=== PATIENT | female | born 1940 | race Caucasian/White ===

== ENCOUNTER → 2016-07-06 | Outpatient (REF) | payer MEDICARE, OTHER ==
[~2016-07-06] MED LIST: AMLO10TA2 PO; METF-414 PO; SIMV20TA2 PO; TEKT300T PO; VITA200016 PO
== END ==
LOC: M LAB REF 16:28
PROVIDERS: ATTEND Nurse Practitioner Adult Health
DX: D64.9 Anemia, unspecified (principal)

== ENCOUNTER → 2016-08-13 | Outpatient (REF) | payer MEDICARE, OTHER | LOC: M LAB REF 12:24 | PROVIDERS: ATTEND Nurse Practitioner Adult Health | DX: N39.0 Urinary tract infection, site not specified (principal) ==

== ENCOUNTER → 2017-01-12 | Outpatient (REF) | payer MEDICARE, OTHER ==
[~2017-01-12] MED LIST changes: +ASPI81TA85 PO; +BISO10TA PO; +COUM2.5T17 PO; +FERR325T3 PO; +JANU50TA8 PO; +PERC5TAB12 PO; -TEKT300T PO; +[UNRECOGNIZED DRUG - CODE] PO
[2017-01-12 13:30] LABS: INR 0.89
== END ==
LOC: M LAB REF 12:37
PROVIDERS: ATTEND Nurse Practitioner Adult Health
DX: Z01.812 Encounter for preprocedural laboratory examination (principal); Z79.899 Other long term (current) drug therapy

== ENCOUNTER → 2017-01-12 | Outpatient (CLI) | payer MEDICARE, OTHER ==
--- NOTE | 2017-01-12 11:32 | REP ---
Clinical: Preoperative assessment . Comparison: 07/24/2014 . Technique: PA and lateral. Findings: The mediastinum and cardiac silhouette are normal. Airway is patent and midline. The lung pruitt are clear and without acute consolidation, effusion, or pneumothorax. A small subtle nodule in the left suprahilar region cannot be excluded. The skeletal structures are intact and normal. Impression: 1. No acute cardiopulmonary process. 2. Cannot exclude small subtle left suprahilar nodule for which chest CT may be warranted. Signed by Boaz Langford MD 01/12/2017 11:24 A
== END ==
LOC: M ADMPAT 09:52
PROVIDERS: ATTEND Orthopaedic Surgery
DX: Z01.818 Encounter for other preprocedural examination (principal); Z01.812 Encounter for preprocedural laboratory examination; Z79.899 Other long term (current) drug therapy

== ENCOUNTER → 2017-01-13 | Outpatient (REF) | payer MEDICARE, OTHER | LOC: M LAB REF 16:02 | PROVIDERS: ATTEND Orthopaedic Surgery | DX: Z01.818 Encounter for other preprocedural examination (principal); Z79.899 Other long term (current) drug therapy ==

== ENCOUNTER 2017-01-24 06:34 | Inpatient (IN) | payer MEDICARE, OTHER ==
[2017-01-12 10:19] VITALS: BP 139/78
--- NOTE | 2017-01-18 16:49 | HPE ---
DATE OF ADMISSION: 01/24/2017 CHIEF COMPLAINT: Left knee pain and stiffness. HISTORY: Patient is a pleasant 76-year-old female with progressively worsening left knee pain and stiffness. She has failed to improve with conservative measures, so she has elected for a left total knee arthroplasty with Dr. Champagne. Medical optimization received and reviewed during appointment. This was done by nurse practitioner, Nena Johnson. CHRONIC MEDICAL CONDITIONS: 1. Hypertension. 2. Hyperlipidemia. 3. Type 2 diabetes. 4. Lichen planus. SURGICAL HISTORY: 1. Bilateral cataract removal. 2. section. 3. Multiple trigger finger releases. 4. Tonsillectomy. CURRENT MEDICATIONS: - Zebeta 5 mg daily - iron 325 mg daily - Janumet extended release mcg - magnesium 400 mg - aspirin 81 mg daily - amlodipine 10 mg daily - vitamin D3 at 2000 units daily - Zocor 20 mg daily - Tylenol 325 mg as needed for pain - triamcinolone topical - Tekturna 300 mg daily - probiotic ALLERGIES: There are no known drug allergies. SOCIAL HISTORY: Patient is and lives alone. She has never smoked and does not use alcohol. REVIEW OF SYSTEMS: Patient denies fevers, chills, nausea, vomiting, or diarrhea. She denies chest pain, shortness of breath, lightheadedness, dizziness, or headaches. No complaints of abdominal pain. She does have persistent left knee pain with activities of daily living and weightbearing activities. PHYSICAL EXAMINATION: Well-nourished, well-developed female in no apparent distress. She is walking today with a slight limp favoring the left lower extremity. HEAD: Normocephalic. NECK: Supple without lymphadenopathy or jugular venous distention. LUNGS: Clear to auscultation bilaterally. HEART: Regular rate and rhythm. ABDOMEN: Soft. Nontender to palpation. Positive bowel sounds times four. MUSCULOSKELETAL: Inspection of the left knee revealed no gross abnormalities. Her skin is intact. She can extend to almost 0 degrees and can flex to approximately 90 degrees. Left lower extremity strength in normal. No hip irritability was elicited with range of motion. Her calf is soft and nontender to palpation with no palpable cords noted. Her pedal pulses are palpable. VITAL SIGNS: Height 5 feet 3/4 inches, weight 200.6 pounds, temperature 97.7, blood pressure 150/72, heart rate 64, respirations 11. LABORATORY DATA: Chest x-ray: No acute cardiopulmonary process. Cannot exclude small subtle suprahilar nodule, for which chest CT may be warranted. EKG: Study from 2016 does show a normal sinus rhythm. Complete blood count: WBC 6.7, RBC 5.22, hematocrit 39.6, hemoglobin 13.3, platelets 252. Comprehensive chemistry profile: Albumin/globulin ratio 1.1, albumin 3.8, alkaline phosphatase elevated at 129, ALT 26, AST 17. BUN elevated at 21, calcium 9.6, carbon dioxide 26, chloride 104, creatinine 0.9, potassium 4.1, serum glucose elevated at 193, sodium 141. Total bilirubin 0.5, total protein 7.4. Magnesium decreased at 1.6. PTT decreased at 26.7, PT decreased at 12.1, INR 0.89. Fasting glucose 154, hemoglobin A1c 7.0. IMPRESSION: Left knee osteoarthritis with x-rays notable for end-stage degenerative changes. PLAN: Patient has consented for an elective total knee arthroplasty with Dr. Champagne. Medical optimization received from Nena Johnson. EDGARDO
[~2017-01-24] VITALS: Ht 167.6 cm; Wt 89.8 kg
[2017-01-24] VITALS (7 sets, daily range): BP systolic 150–163; BP diastolic 68–80
[~2017-01-24 06:34] MED LIST changes: -COUM2.5T17 PO; +EPINEPHrine INJ 1 MG/ML 1ML AMP As Ordered ONE; -PERC5TAB12 PO; +TRANEXAMIC ACID 100 MG/ML 10ML VIAL As Ordered ONE; +ceFAZolin 1GM INJ (J0690) As Ordered ONE
[2017-01-24] MEDS ORDERED: LR 1,000 ML IV SCH ×2 (06:45→12:15)
[2017-01-24] MEDS ORDERED: ACETAMINOPHEN 500 MG TAB PO ONE (06:45)
[2017-01-24] MEDS ORDERED: fentaNYL 100 MCG/2 ML INJECTION (J3010) As Ordered ONE ×2 (08:33→09:42)
[2017-01-24] MEDS ORDERED: MIDAZOLAM INJ 2 MG/2 ML VIAL (J2250) As Ordered ONE ×2 (08:33→09:42)
[2017-01-24] MEDS: MIDAZOLAM INJ 2 MG/2 ML VIAL (J2250) IV PRN ×2 (08:48→08:49)
[2017-01-24] MEDS ORDERED: BUPIVACAINE LIPOSOME/PF 1.3% 20 ML VIAL (13.3MG/ML)(EXPAREL) As Ordered ONE (09:25)
[2017-01-24] MEDS ORDERED: fentaNYL 100 MCG/2 ML INJECTION (J3010) IV PRN ×2 (09:30→12:15)
[2017-01-24] MEDS ORDERED: LIDOCAINE 2% INJ 100 MG/5 ML SDV (FOR ANES.) As Ordered ONE (09:42)
[2017-01-24] MEDS ORDERED: PROPOFOL 200 MG/20 ML VIAL As Ordered ONE (09:42)
[2017-01-24] MEDS ORDERED: dexameTHASONE 10 MG/1 ML VIAL PRES.FREE (J1100) ONE (10:29)
[2017-01-24] MEDS ORDERED: LIDOCAINE 1% MDV 20ML VIAL ONE (10:29)
[2017-01-24] MEDS ORDERED: ROPIvacaine 0.5% 30 ML INJECTION (J2795) ONE (10:29)
[2017-01-24] MEDS ORDERED: MORPHINE 1MG/ML IN 0.9% NACL 100ML IV BAG As Ordered ONE (11:42)
[2017-01-24] MEDS ORDERED: HumaLOG INSULIN (NovoLOG) PER UNIT As Ordered ONE (11:42)
[2017-01-24] MEDS ORDERED: diphenhydrAMINE INJ 50MG/ML VIAL (J1200) IV PRN (12:15)
[2017-01-24] MEDS ORDERED: PERCOCET 5MG/325MG TAB PO PRN (12:15)
[2017-01-24] MEDS ORDERED: ACETAMINOPHEN TAB 650MG DOSE (2X325MG) PO PRN (12:15)
[2017-01-24] MEDS ORDERED: HumaLOG INSULIN (NovoLOG) PER UNIT SC ONE (12:15)
[2017-01-24] MEDS ORDERED: HYDROmorphone HCL 1 MG/ML SYRINGE (J1170) IV PRN (12:15)
[2017-01-24] MEDS ORDERED: FLEET ENEMA PR PRN (12:15)
[2017-01-24] MEDS ORDERED: ONDANSETRON 4MG/2ML VIAL (J2405) IV PRN ×2 (12:15)
[2017-01-24] MEDS ORDERED: EPIDURAL/PCA KEYS XX PRN (12:15)
[2017-01-24] MEDS ORDERED: NALBUPHINE HCL 10 MG/ML AMP (J2300) IV PRN (12:15)
[2017-01-24] MEDS ORDERED: MORPHINE 1MG/ML IN 0.9% NACL 100ML IV BAG IV PRN (12:15)
[2017-01-24] MEDS ORDERED: NALOXONE INJ 0.4 MG/1 ML VIAL (J2310) IV PRN (12:15)
[2017-01-24] MEDS ORDERED: GLUCAGON FOR INJ 1 MG VIAL (J1610) SC PRN (14:15)
[2017-01-24] MEDS ORDERED: GLUCOSE 4 GM CHEW TABLET PO PRN (14:15)
[2017-01-24] MEDS ORDERED: DEXTROSE 50% 50 ML SYRINGE IV PRN (14:15)
--- NOTE | 2017-01-24 14:22 | CR ---
DATE OF CONSULTATION: 01/24/2017 PRIMARY CARE PROVIDER: Janel Menendez/Dr. Teddy Fernandez SURGEON: Dr. Emir Champagne HOSPITALIST ATTENDING: Will be Dr. Taty Cervantes effective 01/25/2017 Scooter Barrera is seen postoperatively. She underwent left total knee today. Her preoperative optimization was performed by Nena Johnson NP at Dr. Fernandez's office. She has a history of hypertension, type 2 diabetes, hyperlipidemia, lichen planus. She had a nuclear stress test on 04/21 that showed no ischemia. Ejection fraction of 51%. HOME MEDICATIONS: - bisoprolol 5 mg daily - Janumet XR (Januvia) 50 mg/metformin XR 1000 mg (I assume daily) frequency is not specified on her preop - amlodipine 10 mg presumably daily - simvastatin 20 mg daily - triamcinolone 0.1% for the lichen planus - Tekturna 300 mg presumably daily Preoperative optimization did not specify the frequency of any of her medications. PHYSICAL EXAMINATION: 153/72, pulse 65, respiratory rate 18, 98% oxygen saturation, 97.7 degrees. GENERAL APPEARANCE: She is resting comfortably and visiting with family members, eating her lunch. HEENT: Unremarkable. LUNGS: Clear. HEART: Regular rate and rhythm. ABDOMEN: Soft, nontender. No masses. EXTREMITIES: No peripheral edema. LABORATORY DATA: Still pending. She had preoperative laboratories done at Dr. Fernandez's office. Hemoglobin was 13.3, platelets 250, white count 6.7, BUN 21, magnesium 1.6. EKG showed nonspecific abnormalities. No change from 12/22. Chest x-ray suggested question of small nodule in left suprahilar area. IMPRESSION: 1. Hypertension. Continue bisoprolol. Hold the amlodipine and Tekturna for now. Reintroduce amlodipine if blood pressure becomes elevated and then subsequently Tekturna if necessary. 2. Type 2 diabetes. Sliding scale insulin and fingerstick blood sugar coverage for the first 24 hours until her oral intake is assured. At that point, consideration could be given to restarting her oral agents, assuming her renal function is maintained. 3. Hyperlipidemia. Continue her simvastatin 20 mg daily. 4. Lung nodule on chest x-ray. This needs to be evaluated as an outpatient. Per preoperative optimization note, they plan to address this through Dr. Fernandez's office. Dr. Taty Cervantes will be assuming the patient's medical care in the morning.
--- NOTE | 2017-01-24 16:35 | RO ---
DATE OF PROCEDURE: 01/24/2017 PREPROCEDURE DIAGNOSIS: Left knee degenerative arthritis. POSTPROCEDURE DIAGNOSIS: Left knee degenerative arthritis. PROCEDURE: Left total knee arthroplasty using a size 3 cruciate-retaining femoral component, a size 3 tibial tray with a 10 mm rotating platform polyethylene insert and a 32 mm polyethylene button. All component were cemented. The prosthesis was made by [employer]; it was a PFC knee. SURGEON: Dr. Clifford Champagne RADIO INTERFERENCE EXPERT: Mr. Logan Vegas ANESTHESIA: Spinal with left femoral nerve block. COMPLICATIONS: None. ESTIMATED BLOOD LOSS: Less than 20 mL. SPECIMENS: Joint surface. DESCRIPTION OF PROCEDURE: Antibiotics were given intravenously preoperatively successfully, then a left femoral nerve block and then a spinal anesthetic was induced successfully. Tourniquet was placed on the left upper thigh and not inflated. A Clifton catheter was placed. Left lower extremity was then carefully prepped and draped in the usual sterile fashion. Then, after appropriate time-out, the leg was elevated, tourniquet was inflated. A longitudinal incision was made for a medial parapatellar approach to the knee. Bovie cautery was used to coagulate crossing vessels. Medial parapatellar arthrotomy was then performed. Subperiosteal dissection was performed along the proximal and medial portion of the tibia and then as well along the edge of the lateral tibial plateau. The patella was then everted and the knee was flexed. Anterior cruciate ligament (ACL) was debrided. Drill was placed down the center of the femoral canal, followed by the intramedullary guero, the distal femoral cutting jig set at 5 degree valgus cut, at 10 mm resection level for a left knee. It was pinned into position and then the distal femoral cut performed. AP sizing jig measured for a size 3 femoral component, thus this position was pinned into position followed by the 3 degree external rotation block, which was pinned into position, followed by the 4-in-1 block and then that was applied to the distal femur. AP and then the chamfer cuts were then performed, taking great care to protect the surrounding soft tissues. We then exposed the proximal tibia and used the extramedullary alignment jig to be sure parallel to the mechanical axis, referenced off the medial tibial condyle at 4 mm resection level. The block was pinned in that position, secondary check with the extramedullary guero confirmed that we appeared to be parallel to the mechanical axis. Proximal tibial osteotomy was then performed. We placed the lamina lieutenant firefighter laterally and performed a completion medial meniscectomy, debridement of the posteromedial osteophytes. We then placed the lamina lieutenant firefighter medially and performed a completion lateral meniscectomy, debridement of the posterolateral osteophytes. The sizing block placed, 10 mm fit nicely with good extension and good stability to varus, valgus and AP stress testing. This was felt to be the appropriate size. We then exposed the proximal tibia, sized for a #3 tibial tray, which was pinned into position, followed by the reamer and broach. We then placed the trial polyethylene, then placed the trial femoral component. It fit nicely, and there was good stability to varus, valgus stress testing both in flexion and in extension. We everted the patella, brought the knee into extension and performed a patellar osteotomy, sized for a 32 mm button. The lug holes were drilled, and the trial polyethylene patellar component was placed and the patellofemoral tracking was anatomic. We then removed all the trial components and then began placing Exparel in the soft tissues in the posterior aspect of the knee and around the periosteum of the femur and in the edges of the arthrotomy. As this was being done, my optical assistant, Mr. Logan Vegas, mixed the cement on the back table as I then prepared the bony surfaces for cementing with a copious amount of pulsatile lavage irrigant solution. Once everything had been thoroughly dried, I cemented the tibial tray, removed excess cement, placed the polyethylene, then cemented the femoral component, removed all the excess cement, then brought the knee into extension and then cemented the patellar component and removed excess cement, held the patellar clamp until the cement had hardened with the knee in extension. And as the cement was hardening, copiously pulsatile lavage irrigated out the knee joint as we did several times throughout the operation. Once the cement had hardened, I began closing the apex of the arthrotomy with two #1 PDS sutures and the medial parapatellar area was closed with a single #1 PDS suture, followed by a running double-armed Stratafix after we placed tranexamic acid into the knee. We then let the tourniquet down, irrigated between layers, closed the deep subdermal tissues with interrupted #2-0 PDS sutures, skin was closed with karlie, covered by Adaptic dry sterile bulky dressing. The patient was then transferred to the recovery room in stable condition. There were no intraoperative complications. Mr. Logan Vegas was critical to the success of this operation by helping to manipulate the knee, helping to manipulate the leg and provide appropriate soft tissue retraction, so I could perform the operation smoothly and efficiently, helped to close the wound, amongst others. EDGARDO
[2017-01-24] MEDS ORDERED: WARFARIN SOD 5 MG TAB PO ONE (17:00)
[2017-01-24] MEDS: LR 1,000 ML IV SCH ×2 (17:18→22:41)
[2017-01-24] MEDS: HumaLOG INSULIN (NovoLOG) PER UNIT SC SCH ×2 (17:18→21:00)
[2017-01-24] MEDS: SIMVASTATIN 20 MG TAB PO SCH (17:20)
[2017-01-24] MEDS: BISOPROLOL FUMARATE 10 MG TAB PO SCH (17:21)
[2017-01-25 02:00] VITALS: BP 128/60
[2017-01-25 06:00] VITALS: BP 130/56
[2017-01-25] MEDS ORDERED: PERCOCET 5MG/325MG TAB PO PRN (07:00)
[2017-01-25 07:08] LABS: MEAN CORPUSCULAR HEMOGLOBIN 26.5 pg (27.0-33.0); MEAN CORPUSCULAR HGB CONC 33.2 g/dl (32.0-36.5); RED CELL DISTRIBUTION WIDTH 14.3 % (11.5-14.5); WHITE BLOOD COUNT 10.8 K/mm3 (4.0-10.0)
[2017-01-25 07:14] LABS: INR 1.21
[2017-01-25 07:30] LABS: CALCIUM LEVEL 8.9 MG/DL (8.8-10.2); GLOMERULAR FILTRATION RATE 57.1 (>39); POTASSIUM SERUM 4.5 MEQ/L (3.5-5.1)
[2017-01-25] MEDS: MOM 30ML SUSPENSION UDC PO SCH (08:38)
[2017-01-25] MEDS: MIRALAX *UNIT DOSE* 17GM PACKET PO SCH (08:38)
[2017-01-25] MEDS: HumaLOG INSULIN (NovoLOG) PER UNIT SC SCH ×4 (08:39→21:00)
[2017-01-25] MEDS: BISOPROLOL FUMARATE 10 MG TAB PO SCH (08:39)
[2017-01-25] MEDS: SIMVASTATIN 20 MG TAB PO SCH (08:40)
[2017-01-25] MEDS: SENOKOT S TAB PO SCH ×2 (08:40→20:57)
[2017-01-25] MEDS: PERCOCET 5MG/325MG TAB PO PRN ×3 (08:40→20:57)
[2017-01-25 10:00] VITALS: BP 155/64
[2017-01-25] MEDS ORDERED: ONDANSETRON 4MG/2ML VIAL (J2405) IV PRN (10:45)
[2017-01-25] MEDS: ONDANSETRON 4 MG TAB (S0181) PO PRN ×2 (10:49→17:07)
--- NOTE | 2017-01-25 11:01 | REP ---
LEFT KNEE: Two views of the left knee are performed. Total knee prosthesis appears in good position. Structures are well aligned. Multiple metallic skin karlie are seen anteriorly. Signed by Jarad Hilliard MD 01/25/2017 01:47 P
[2017-01-25 14:00] VITALS: BP 134/71
[2017-01-25] MEDS ORDERED: WARFARIN SOD 5 MG TAB PO ONE (17:00)
[2017-01-25 22:00] VITALS: BP 177/75
[2017-01-26] MEDS: PERCOCET 5MG/325MG TAB PO PRN ×4 (01:00→14:45)
[2017-01-26 06:00] VITALS: BP 162/71
[2017-01-26 07:09] LABS: MEAN CORPUSCULAR HEMOGLOBIN 26.8 pg (27.0-33.0); MEAN CORPUSCULAR HGB CONC 33.7 g/dl (32.0-36.5); MEAN CORPUSCULAR VOLUME 79.4 fl (80.0-96.0); RED CELL DISTRIBUTION WIDTH 14.2 % (11.5-14.5); WHITE BLOOD COUNT 6.2 K/mm3 (4.0-10.0)
[2017-01-26 07:10] LABS: INR 1.54
[2017-01-26 07:13] LABS: ANION GAP 5 MEQ/L (8-16); BLOOD UREA NITROGEN 21 MG/DL (7-18); CALCIUM LEVEL 8.7 MG/DL (8.8-10.2); CARBON DIOXIDE LEVEL 29 MEQ/L (21-32); CHLORIDE LEVEL 108 MEQ/L (98-107); CREATININE FOR GFR 0.81 MG/DL (0.55-1.02); GLOMERULAR FILTRATION RATE > 60.0 (>39); GLUCOSE, FASTING 186 MG/DL (83-110); POTASSIUM SERUM 4.4 MEQ/L (3.5-5.1); SODIUM LEVEL 142 MEQ/L (136-145)
[2017-01-26 08:20] VITALS: BP 162/71
[2017-01-26] MEDS: MOM 30ML SUSPENSION UDC PO SCH (08:20)
[2017-01-26] MEDS: SIMVASTATIN 20 MG TAB PO SCH (08:20)
[2017-01-26] MEDS: HumaLOG INSULIN (NovoLOG) PER UNIT SC SCH ×2 (08:20→12:00)
[2017-01-26] MEDS: SENOKOT S TAB PO SCH (08:20)
[2017-01-26] MEDS: MIRALAX *UNIT DOSE* 17GM PACKET PO SCH (08:20)
[2017-01-26] MEDS ORDERED: BISOPROLOL FUMARATE 5 MG TAB PO SCH (09:00)
[2017-01-26] MEDS ORDERED: COUM2.5T17 PO (09:01)
[2017-01-26] MEDS ORDERED: PERC5TAB12 PO (09:02)
[2017-01-26 14:00] VITALS: BP 142/55
--- NOTE | 2017-02-03 10:41 | DSES ---
DATE OF ADMISSION: 01/24/2017 DATE OF DISCHARGE: 01/26/2017 ATTENDING PHYSICIAN: Dr. Champagne ADMITTING DIAGNOSIS: Osteoarthritis left knee. OTHER DIAGNOSIS: Hypertension. Diabetes type 2. Elevated lipids. DISCHARGE DIAGNOSIS: Osteoarthritis left knee status post left total knee arthroplasty. OPERATION PERFORMED: Left total knee arthroplasty. HISTORY: This is a 76-year-old female patient with progressively worsening left knee pain and stiffness. She failed to improve with conservative management. She was admitted for elective knee replacement on the left side. HOSPITAL COURSE: The patient was admitted on day of surgery, underwent a left total knee arthroplasty, which was uneventful. She did well in the postoperative period and her hospital course was without complications. She was up with physical therapy per their protocol and her pain was controlled. On day of discharge, she was doing well, weightbearing as tolerated on left knee. She will move her left knee to prevent stiffness. She will use adjusted dose Coumadin and thromboembolic deterrent (NASEEM) stockings for 30 days postoperative for deep venous thrombosis (DVT) prophylaxis. She will resume her preoperative medications and diet. She will use oral pain medications for pain control. She was given instructions on wound monitoring activity limitations as well as other instructions. She will followup in our office in 10-14 days. Please refer to the medical record for further details.
== END 2017-01-26 15:35 | disposition home health service (06) | DRG 470 ==
LOC: M OR 06:34 → M MS5PR 12:15
PROVIDERS: ADMIT Orthopaedic Surgery; ATTEND Orthopaedic Surgery
PROC: 0SRD0J9 Replacement of Left Knee Joint with Synthetic Substitute, Cemented, Open Approach (ICD-10-PCS; principal; 2017-01-24 08:15)
DX: M17.12 Unilateral primary osteoarthritis, left knee (principal); I10 Essential (primary) hypertension; E78.5 Hyperlipidemia, unspecified; E11.9 Type 2 diabetes mellitus without complications; R91.8 Other nonspecific abnormal finding of lung field; L43.9 Lichen planus, unspecified; Z98.41 Cataract extraction status, right eye; Z98.42 Cataract extraction status, left eye; Z79.82 Long term (current) use of aspirin; Z79.84 Long term (current) use of oral hypoglycemic drugs; Z79.899 Other long term (current) drug therapy

== ENCOUNTER → 2017-02-10 | Outpatient (REF) | payer MEDICARE, OTHER ==
[~2017-02-10] MED LIST changes: +COUM2.5T17 PO; -EPINEPHrine INJ 1 MG/ML 1ML AMP As Ordered ONE; +PERC5TAB12 PO; -TRANEXAMIC ACID 100 MG/ML 10ML VIAL As Ordered ONE; -ceFAZolin 1GM INJ (J0690) As Ordered ONE
[2017-02-10 12:47] LABS: INR 1.45
== END ==
LOC: M LABDRAW1 11:05
PROVIDERS: ATTEND Nurse Practitioner Family
DX: Z79.01 Long term (current) use of anticoagulants (principal)

== ENCOUNTER → 2017-02-17 | Outpatient (REF) | payer MEDICARE, OTHER ==
[2017-02-17 14:30] LABS: INR 2.22
== END ==
LOC: M SHH 11:52
PROVIDERS: ATTEND Nurse Practitioner Family
DX: Z79.01 Long term (current) use of anticoagulants (principal)

== ENCOUNTER → 2017-02-21 | Outpatient (REF) | payer MEDICARE, OTHER ==
[2017-02-21 13:21] LABS: INR 1.38
== END ==
LOC: M SHH 12:08
PROVIDERS: ATTEND Nurse Practitioner Family
DX: Z79.01 Long term (current) use of anticoagulants (principal)

== ENCOUNTER → 2017-06-27 | Outpatient (REF) | payer MEDICARE, OTHER ==
[2017-06-27 19:57] LABS: IRON (FE) 33 UG/DL (50-170)
== END ==
LOC: M LAB REF 18:19
DX: D50.9 Iron deficiency anemia, unspecified (principal)
CPT/HCPCS: 83540

== ENCOUNTER → 2017-09-27 | Outpatient (REF) | payer MEDICARE, OTHER ==
[2017-09-27 18:31] LABS: IRON (FE) 41 UG/DL (50-170)
== END ==
LOC: M LAB REF 17:13
DX: D50.9 Iron deficiency anemia, unspecified (principal)
CPT/HCPCS: 83540

== ENCOUNTER → 2018-02-02 | Outpatient (REF) | payer MEDICARE, OTHER ==
[2018-02-02 19:25] LABS: IRON (FE) 58 UG/DL (50-170)
== END ==
LOC: M LAB REF 16:27
DX: D50.9 Iron deficiency anemia, unspecified (principal)
CPT/HCPCS: 83540

== ENCOUNTER → 2018-06-14 | Outpatient (REF) | payer MEDICARE, OTHER ==
[~2018-06-14] MED LIST changes: -AMLO10TA2 PO; +AMLO10TA5 PO; +TEKT300T PO; -[UNRECOGNIZED DRUG - CODE] PO
== END ==
LOC: M LAB REF 16:40
PROVIDERS: ATTEND Nurse Practitioner Adult Health
DX: E03.9 Hypothyroidism, unspecified (principal)

== ENCOUNTER → 2018-11-07 | Outpatient (REF) | payer MEDICARE, OTHER ==
[~2018-11-07] MED LIST changes: -BISO10TA PO; +BISO10TA13 PO
== END ==
LOC: M LAB REF 16:32
PROVIDERS: ATTEND Nurse Practitioner Adult Health
DX: D50.9 Iron deficiency anemia, unspecified (principal)

== ENCOUNTER → 2019-12-12 | Outpatient (REF) | payer MEDICARE, OTHER ==
[~2019-12-12] MED LIST changes: -AMLO10TA5 PO; +AMLO1TAB25 PO; -ASPI81TA85 PO; +ASPI81TA86 PO; -SIMV20TA2 PO; +SIMV20TA22 PO
[2020-01-21 09:22] LABS: ANTINUCLEAR ANTIBODIES DIRECT See Separate Report; HEREDITARY HEMOCHROMATOSIS SEE SEPARATE REPORT
[2020-01-27 17:02] LABS: HEPATITIS A ANTIBODY IGM NEGATIVE (NEGATIVE); HEPATITIS B CORE ANTIBODY IGM NEGATIVE (NEGATIVE); HEPATITIS B SURFACE ANTIGEN NEGATIVE (NEGATIVE); HEPATITIS C VIRUS ABY INDEX 0.2 INDEX (<0.8); IRON (FE) 50 UG/DL (50-170); PERCENT SATURATION 18.7 % (13.2-45.0); TOTAL IRON BINDING CAPACITY 267 UG/DL (250-450)
== END ==
LOC: M LAB REF 10:06
PROVIDERS: ATTEND Nurse Practitioner Adult Health
DX: R74.8 Abnormal levels of other serum enzymes (principal); Z51.81 Encounter for therapeutic drug level monitoring; Z79.01 Long term (current) use of anticoagulants

== ENCOUNTER → 2019-12-14 | Outpatient (REF) | payer MEDICARE, OTHER | LOC: M LAB REF 11:11 | PROVIDERS: ATTEND Nurse Practitioner Adult Health | DX: R74.9 Abnormal serum enzyme level, unspecified (principal) ==

== ENCOUNTER → 2019-12-19 | Emergency (ER) | payer MEDICARE, OTHER ==
[~2019-12-19] MED LIST changes: +ISOVUE-370 76% 100ML VIAL As Ordered ONE
[2020-02-06 20:16] LABS: BASO % 0.2 % (0.0-1.0); EOS % 0.2 % (0.0-3.0); HEMATOCRIT 42.4 % (36.0-47.0); HEMOGLOBIN 13.9 g/dl (12.0-15.5); LYMPH # 0.7 10^3/uL (1.5-5.0); LYMPH % 8.9 % (24.0-44.0); MEAN CORPUSCULAR HEMOGLOBIN 27.2 pg (27.0-33.0); MEAN CORPUSCULAR HGB CONC 32.8 g/dl (32.0-36.5); MONO # 0.4 10^3/uL (0.0-0.8); MONO % 5.1 % (0.0-5.0); NEUTROPHILS # 7.1 10^3/uL (1.5-8.5); NEUTROPHILS % 85.2 % (36.0-66.0); PLATELET COUNT, AUTOMATED 212 10^3/uL (150-450); RED BLOOD COUNT 5.11 10^6/uL (4.00-5.40); WHITE BLOOD COUNT 8.3 10^3/uL (4.0-10.0)
[2020-03-12 04:57] LABS: CALCIUM LEVEL 9.4 MG/DL (8.8-10.2); CREATININE FOR GFR 1.03 MG/DL (0.55-1.30); GLOMERULAR FILTRATION RATE 54.7 (>32); POTASSIUM SERUM 4.6 MEQ/L (3.5-5.1)
== END | disposition other institution (70) ==
LOC: M ED 16:25
DX: K83.1 Obstruction of bile duct (principal); E11.9 Type 2 diabetes mellitus without complications; I10 Essential (primary) hypertension; E78.5 Hyperlipidemia, unspecified; Z79.899 Other long term (current) drug therapy; N28.1 Cyst of kidney, acquired; R16.1 Splenomegaly, not elsewhere classified; K76.89 Other specified diseases of liver; I51.7 Cardiomegaly
CPT/HCPCS: 74177; 74181; 76705; 80048; 83605; 83690; 85025; 99291; Q9967; U0002

== ENCOUNTER → 2020-06-29 | Outpatient (CLI) | payer MEDICARE, OTHER ==
[~2020-06-29] MED LIST changes: -ISOVUE-370 76% 100ML VIAL As Ordered ONE
== END ==
LOC: M LABSMTC 09:19
PROVIDERS: ATTEND Nurse Practitioner Adult Health
DX: Z01.812 Encounter for preprocedural laboratory examination (principal); Z20.822 Contact with and (suspected) exposure to COVID-19

== ENCOUNTER → 2020-07-30 | Outpatient (CLI) | payer MEDICARE, OTHER | LOC: M LABSMTC 13:39 | PROVIDERS: ATTEND Registered Nurse | DX: Z01.812 Encounter for preprocedural laboratory examination (principal); K83.1 Obstruction of bile duct ==

== ENCOUNTER → 2021-03-23 | Outpatient (REF) | payer MEDICARE, OTHER | LOC: M LAB REF 16:29 | PROVIDERS: ATTEND Nurse Practitioner Adult Health | DX: N39.0 Urinary tract infection, site not specified (principal); E03.9 Hypothyroidism, unspecified ==

== ENCOUNTER → 2021-04-24 | Outpatient (REF) | payer MEDICARE, OTHER ==
[2021-04-24 16:37] LABS: BACTERIA, URINE AUTO NEGATIVE (NEGATIVE); MUCUS, URINE SMALL (NEGATIVE); RBC, URINE AUTO 2 /HPF (0-3); SQUAMOUS EPITHELIAL CELL UR AU 0 /HPF (0-6); WBC, URINE AUTO 1 /HPF (0-3)
== END ==
LOC: M LAB REF 16:06
PROVIDERS: ATTEND Physician Assistant Medical
DX: R31.9 Hematuria, unspecified (principal)

== ENCOUNTER 2021-09-09 07:50 | Day surgery (SDC) | payer MEDICARE, OTHER ==
[~2021-09-09] VITALS: Ht 165.1 cm; Wt 85.6 kg
[~2021-09-09 07:50] MED LIST changes: +ASPI81TA26 PO; +D 101000 PO; +FURO40TA2 PO; +LIDOCAINE W/EPINEPHRINE 1% 20ML VIAL ID ONE; +MAGN400T2 PO; +METF500T13 PO; +SODIUM BICARBONATE 8.4% INJ 50MEQ 50 ML VIAL ID ONE; +SPIR-10 PO; +VALS1TAB67 PO
[2021-09-09 11:04] VITALS: BP 133/62
== END 2021-09-09 11:30 | disposition home or self-care (01) ==
LOC: M SDC 07:50
PROVIDERS: ATTEND Orthopaedic Surgery Hand Surgery
DX: M65.4 Radial styloid tenosynovitis [de Quervain] (principal); R22.43 Localized swelling, mass and lump, lower limb, bilateral; I10 Essential (primary) hypertension; Z79.82 Long term (current) use of aspirin; Z79.899 Other long term (current) drug therapy

== ENCOUNTER → 2021-09-25 | Outpatient (CLI) | payer MEDICARE, OTHER ==
[~2021-09-25] MED LIST changes: +Areds PO; +BISO5TAB14 PO; -LIDOCAINE W/EPINEPHRINE 1% 20ML VIAL ID ONE; -SODIUM BICARBONATE 8.4% INJ 50MEQ 50 ML VIAL ID ONE
== END ==
LOC: M LABSMTC 09:25
PROVIDERS: ATTEND Anesthesiology
DX: Z01.812 Encounter for preprocedural laboratory examination (principal); Z20.822 Contact with and (suspected) exposure to COVID-19

== ENCOUNTER 2021-09-30 07:33 | Day surgery (SDC) | payer MEDICARE, OTHER ==
[~2021-09-30] VITALS: Ht 165.1 cm; Wt 79.4 kg
[~2021-09-30 07:33] MED LIST changes: +LIDOCAINE W/EPINEPHRINE 1% 20ML VIAL XX ONE; +SODIUM BICARBONATE 8.4% INJ 50MEQ 50 ML VIAL XX ONE
[2021-09-30] MEDS ORDERED: BACITRACIN OINTMENT 30GM TUBE As Ordered ONE (09:41)
[2021-09-30 10:30] VITALS: BP 159/70
== END 2021-09-30 10:50 | disposition home or self-care (01) ==
LOC: M SDC 07:33
PROVIDERS: ATTEND Orthopaedic Surgery Hand Surgery
DX: M65.351 Trigger finger, right little finger (principal); M65.311 Trigger thumb, right thumb; I10 Essential (primary) hypertension; E11.9 Type 2 diabetes mellitus without complications; Z79.84 Long term (current) use of oral hypoglycemic drugs; Z79.899 Other long term (current) drug therapy

== ENCOUNTER → 2021-11-04 | Outpatient (CLI) | payer MEDICARE, OTHER ==
[~2021-11-04] MED LIST changes: -LIDOCAINE W/EPINEPHRINE 1% 20ML VIAL XX ONE; -SODIUM BICARBONATE 8.4% INJ 50MEQ 50 ML VIAL XX ONE
== END ==
LOC: M WUC 11:57
PROVIDERS: ATTEND Nurse Practitioner Adult Health
DX: S20.212A Contusion of left front wall of thorax, initial encounter (principal); X58.XXXA Exposure to other specified factors, initial encounter; Y92.9 Unspecified place or not applicable

== ENCOUNTER → 2022-02-22 | Outpatient (CLI) | payer MEDICARE, OTHER | LOC: M LABSMTC 09:05 | PROVIDERS: ATTEND Anesthesiology | DX: Z01.818 Encounter for other preprocedural examination (principal); Z11.52 Encounter for screening for COVID-19 ==

== ENCOUNTER 2022-02-24 11:27 | Day surgery (SDC) | payer MEDICARE, OTHER ==
[~2022-02-24] VITALS: Ht 167.6 cm; Wt 90.3 kg
[~2022-02-24 11:27] MED LIST changes: +LIDOCAINE W/EPINEPHRINE 1% 20ML VIAL XX ONE; +SODIUM BICARBONATE 8.4% INJ 50MEQ 50 ML VIAL XX ONE
[2022-02-24] MEDS ORDERED: BACITRACIN OINTMENT 30GM TUBE As Ordered ONE (13:07)
[2022-02-24 14:00] VITALS: BP 172/64
== END 2022-02-24 14:30 | disposition home or self-care (01) ==
LOC: M SDC 11:27
PROVIDERS: ATTEND Orthopaedic Surgery Hand Surgery
DX: M65.4 Radial styloid tenosynovitis [de Quervain] (principal); M65.352 Trigger finger, left little finger; I10 Essential (primary) hypertension; E11.9 Type 2 diabetes mellitus without complications; H81.10 Benign paroxysmal vertigo, unspecified ear; Z79.899 Other long term (current) drug therapy; Z79.82 Long term (current) use of aspirin; Z79.84 Long term (current) use of oral hypoglycemic drugs

== ENCOUNTER → 2022-05-26 | Outpatient (REF) | payer MEDICARE, OTHER ==
[~2022-05-26] MED LIST changes: -LIDOCAINE W/EPINEPHRINE 1% 20ML VIAL XX ONE; -SODIUM BICARBONATE 8.4% INJ 50MEQ 50 ML VIAL XX ONE
[2022-05-26 17:41] LABS: PHOSPHORUS LEVEL 2.8 MG/DL (2.4-5.1); PTH INTACT 150.3 PG/ML (18.5-88.0)
== END ==
LOC: M LAB REF 16:29
PROVIDERS: ATTEND Nurse Practitioner Adult Health
DX: E83.52 Hypercalcemia (principal)

== ENCOUNTER → 2022-08-27 | Outpatient (CLI) | payer MEDICARE, OTHER | LOC: M CARPUL 09:08 | PROVIDERS: ATTEND Nurse Practitioner Adult Health | DX: R06.02 Shortness of breath (principal) ==

== ENCOUNTER → 2022-11-17 | Outpatient (REF) | payer MEDICARE, OTHER | LOC: M LAB REF 12:34 | PROVIDERS: ATTEND Nurse Practitioner Adult Health | DX: E87.5 Hyperkalemia (principal) ==

== ENCOUNTER → 2023-03-07 | Outpatient (REF) | payer MEDICARE, OTHER | LOC: M LAB REF 16:36 | PROVIDERS: ATTEND Nurse Practitioner Adult Health | DX: N39.0 Urinary tract infection, site not specified (principal) ==

== ENCOUNTER → 2023-04-12 | Outpatient (REF) | payer MEDICARE, OTHER ==
[2023-04-12 17:01] LABS: APPEARANCE, URINE CLEAR (CLEAR); BACTERIA, URINE AUTO NEGATIVE (NEGATIVE); BILIRUBIN, URINE AUTO NEGATIVE (NEGATIVE); BLOOD, URINE BLOOD NEGATIVE (NEGATIVE); COLOR, URINE YELLOW (YELLOW); GLUCOSE, URINE (UA) AUTO NEGATIVE (NEGATIVE); KETONE, URINE AUTO NEGATIVE (NEGATIVE); LEUKOCYTE ESTERASE, URINE AUTO NEGATIVE (NEGATIVE); NITRITE, URINE AUTO NEGATIVE (NEGATIVE); PROTEIN, URINE AUTO NEGATIVE (NEGATIVE); RBC, URINE AUTO 1 /HPF (0-3); SPECIFIC GRAVITY URINE AUTO 1.011 (1.002-1.035); SQUAMOUS EPITHELIAL CELL UR AU 2 /HPF (0-6); UROBILINOGEN, URINE AUTO 0.2 mg/dL (0.0-2.0); WBC, URINE AUTO 2 /HPF (0-3)
== END ==
LOC: M LAB REF 16:29
PROVIDERS: ATTEND Nurse Practitioner Adult Health
DX: I12.9 Hypertensive chronic kidney disease with stage 1 through stage 4 chronic kidney disease, or unspecified chronic kidney disease (principal)

== ENCOUNTER → 2024-03-07 | Outpatient (REF) | payer MEDICARE, OTHER | LOC: M LAB REF 16:55 | PROVIDERS: ATTEND Nurse Practitioner Adult Health | DX: E03.9 Hypothyroidism, unspecified (principal) ==

== ENCOUNTER 2024-07-28 18:49 | Inpatient (IN) | payer MEDICARE, OTHER ==
[~2024-07-28] VITALS: Ht 165.1 cm; Wt 72.8 kg
[2024-07-28 20:23] LABS: BASO % 0.3 % (0.0-1.0); EOS # 0.1 10^3/uL (0.0-0.5); EOS % 0.7 % (0.0-3.0); HEMATOCRIT 39.5 % (36.0-47.0); HEMOGLOBIN 12.9 g/dl (12.0-15.5); LYMPH # 0.8 10^3/uL (1.5-5.0); MEAN CORPUSCULAR HEMOGLOBIN 29.4 pg (27.0-33.0); MEAN CORPUSCULAR HGB CONC 32.7 g/dl (32.0-36.5); MONO # 0.4 10^3/uL (0.0-0.8); MONO % 5.4 % (2.0-8.0); NEUTROPHILS # 6.3 10^3/uL (1.5-8.5); NEUTROPHILS % 82.5 % (36.0-66.0); PLATELET COUNT, AUTOMATED 149 10^3/uL (150-450); RED BLOOD COUNT 4.39 10^6/uL (4.00-5.40); WHITE BLOOD COUNT 7.6 10^3/uL (4.0-10.0)
[2024-07-28 20:58] LABS: CALCIUM LEVEL 9.9 MG/DL (8.3-10.6); CREATININE FOR GFR 1.26 MG/DL (0.55-1.30); MAGNESIUM LEVEL 2.1 MG/DL (1.8-2.4); POTASSIUM SERUM 4.5 MMOL/L (3.5-5.1)
[2024-07-28] MEDS ORDERED: GLUCAGON INJ 1MG VIAL SC PRN (23:15)
[2024-07-28] MEDS ORDERED: GLUCOSE 4 GM CHEW PO PRN (23:15)
[2024-07-28] MEDS ORDERED: DEXTROSE 50% 50ML SYRINGE IV PRN (23:15)
[2024-07-29 00:32] VITALS: BP 168/82; TEMP 97.3; O2SAT 95
[2024-07-29] MEDS: KETOROLAC 30 MG/ML 1ML VIAL IV PRN (00:44)
[2024-07-29] MEDS ORDERED: ELIQ5TAB PO (02:15)
[2024-07-29] MEDS ORDERED: OCUVTAB4 PO (02:15)
[2024-07-29] MEDS ORDERED: VALS40TA9 PO (02:15)
[2024-07-29] MEDS ORDERED: DRON400T PO (02:15)
[2024-07-29] MEDS ORDERED: FURO20TA2 PO (02:15)
[2024-07-29] MEDS ORDERED: DILT1TAB12 PO (02:20)
[2024-07-29] MEDS ORDERED: AMLO1TAB24 PO (02:20)
[2024-07-29] MEDS ORDERED: JARD1TAB PO (02:20)
[2024-07-29] MEDS ORDERED: HOME MED LIST COMPLETE! XX SCH (02:25)
[2024-07-29 04:32] VITALS: BP 138/75; TEMP 97.3; O2SAT 99
[2024-07-29 06:54] LABS: BASO % 0.5 % (0.0-1.0); EOS # 0.1 10^3/uL (0.0-0.5); EOS % 2.4 % (0.0-3.0); HEMATOCRIT 37.7 % (36.0-47.0); HEMOGLOBIN 12.4 g/dl (12.0-15.5); LYMPH # 1.1 10^3/uL (1.5-5.0); LYMPH % 20.6 % (24.0-44.0); MEAN CORPUSCULAR HEMOGLOBIN 29.8 pg (27.0-33.0); MEAN CORPUSCULAR HGB CONC 32.9 g/dl (32.0-36.5); MEAN CORPUSCULAR VOLUME 90.6 fl (80.0-96.0); MONO # 0.3 10^3/uL (0.0-0.8); MONO % 5.4 % (2.0-8.0); NEUTROPHILS # 3.9 10^3/uL (1.5-8.5); NEUTROPHILS % 70.9 % (36.0-66.0); PLATELET COUNT, AUTOMATED 150 10^3/uL (150-450); RED BLOOD COUNT 4.16 10^6/uL (4.00-5.40); WHITE BLOOD COUNT 5.5 10^3/uL (4.0-10.0)
[2024-07-29 07:19] LABS: CREATININE FOR GFR 1.17 MG/DL (0.55-1.30); GLOMERULAR FILTRATION RATE 46.8 (>32); POTASSIUM SERUM 4.2 MMOL/L (3.5-5.1)
[2024-07-29] MEDS: INSULIN LISPRO (NovoLOG) PER UNIT SC SCH ×2 (08:17→21:00)
[2024-07-29] MEDS: bisoproloL fumarate 5 MG TAB PO SCH (08:20)
[2024-07-29] MEDS: DOCUSATE SODIUM 100MG CAPSULE PO SCH (08:20)
[2024-07-29] MEDS: ENOXAPARIN 40MG/0.4ML SYRINGE (J1650 PER 10MG) SC SCH (09:00)
[2024-07-29] MEDS ORDERED: D5W/0.45% SODIUM CHLORIDE 1,000 ML IV SCH (11:10)
[2024-07-29] MEDS ORDERED: NALOXONE INJ 0.4MG/1ML VIAL IV PRN (11:35)
[2024-07-29 12:45] VITALS: BP 143/67; TEMP 97.7; O2SAT 97
[2024-07-29] MEDS: PERCOCET 5MG/325MG TAB PO PRN (18:54)
[2024-07-29 20:00] VITALS: BP 145/64; TEMP 97.7; O2SAT 95
[2024-07-30] VITALS (9 sets, daily range): BP systolic 132–152; BP diastolic 53–91; TEMP 97.2–97.9; O2SAT 92–98
[2024-07-30 05:49] LABS: BASO % 0.3 % (0.0-1.0); EOS # 0.1 10^3/uL (0.0-0.5); EOS % 1.7 % (0.0-3.0); HEMATOCRIT 37.9 % (36.0-47.0); HEMOGLOBIN 12.5 g/dl (12.0-15.5); LYMPH # 0.7 10^3/uL (1.5-5.0); LYMPH % 12.3 % (24.0-44.0); MEAN CORPUSCULAR HEMOGLOBIN 29.3 pg (27.0-33.0); MONO # 0.3 10^3/uL (0.0-0.8); MONO % 5.7 % (2.0-8.0); NEUTROPHILS # 4.7 10^3/uL (1.5-8.5); NEUTROPHILS % 79.7 % (36.0-66.0); PLATELET COUNT, AUTOMATED 141 10^3/uL (150-450); RED BLOOD COUNT 4.26 10^6/uL (4.00-5.40)
[2024-07-30 06:12] LABS: CALCIUM LEVEL 9.8 MG/DL (8.3-10.6); CREATININE FOR GFR 1.02 MG/DL (0.55-1.30); GLOMERULAR FILTRATION RATE 54.8 (>32); POTASSIUM SERUM 4.2 MMOL/L (3.5-5.1)
[2024-07-30] MEDS: D5W/0.45% SODIUM CHLORIDE 1,000 ML IV SCH (09:39)
[2024-07-30] MEDS ORDERED: propofoL 200 MG/20 ML VIAL As Ordered ONE (13:21)
[2024-07-30] MEDS ORDERED: ONDANSETRON 4MG 2ML VIAL As Ordered ONE (13:21)
[2024-07-30] MEDS ORDERED: LIDOCAINE 2% 100MG/5ML SDV (FOR ANES.) As Ordered ONE (13:21)
[2024-07-30] MEDS ORDERED: ROCURONIUM BROMIDE 50MG/5ML VIAL As Ordered ONE (13:21)
[2024-07-30] MEDS ORDERED: SUGAMMADEX SODIUM 500 MG/5 ML VIAL (BRIDION) As Ordered ONE (13:21)
[2024-07-30] MEDS ORDERED: fentaNYL 100 MCG/2 ML INJECTION As Ordered ONE (13:21)
[2024-07-30] MEDS ORDERED: KETOROLAC 30 MG/ML 1ML VIAL As Ordered ONE (13:22)
[2024-07-30] MEDS ORDERED: ACETAMINOPHEN 1000MG/100ML IV BAG As Ordered ONE (13:22)
[2024-07-30] MEDS: ceFAZolin SODIUM 2 GM VIAL As Ordered ONE (14:00)
[2024-07-30] MEDS: TRANEXAMIC ACID 100 MG/ML 10ML VIAL As Ordered ONE (14:02)
[2024-07-30] MEDS: VANCOMYCIN 1000MG/20ML VIAL As Ordered ONE (16:12)
[2024-07-30] MEDS ORDERED: ePHEDrine SULFATE 25 MG/5 ML(5MG/ML) SYRINGE As Ordered ONE (16:40)
[2024-07-30] MEDS: BUPivacaine LIPOSOME/PF 266MG 20ML VIAL (13.3MG/ML)(EXPAREL) As Ordered ONE (16:55)
[2024-07-30] MEDS ORDERED: MORPHINE 2 MG/ML 1ML VIAL IV PRN (17:30)
[2024-07-30] MEDS ORDERED: METOCLOPRAMIDE INJ 10MG/2ML VIAL IV PRN (17:30)
[2024-07-30] MEDS ORDERED: oxyCODONE 5MG TAB PO PRN (17:30)
[2024-07-30] MEDS ORDERED: fentaNYL 100 MCG/2 ML INJECTION IV PRN (17:30)
[2024-07-30] MEDS: ONDANSETRON 4MG 2ML VIAL IV PRN (17:32)
[2024-07-30] MEDS ORDERED: PILL CUTTER 1 EACH XX PRN (17:55)
[2024-07-30] MEDS: DRONEDARONE 400 MG TAB (MULTAQ) PO SCH (20:58)
[2024-07-30] MEDS: dilTIAZem 60 MG TAB PO SCH (21:00)
[2024-07-31 04:21] VITALS: BP 133/66; TEMP 97.4; O2SAT 92
[2024-07-31 07:04] LABS: BASO % 0.2 % (0.0-1.0); HEMATOCRIT 33.3 % (36.0-47.0); LYMPH # 0.7 10^3/uL (1.5-5.0); LYMPH % 11.6 % (24.0-44.0); MEAN CORPUSCULAR HEMOGLOBIN 29.1 pg (27.0-33.0); MEAN CORPUSCULAR VOLUME 88.1 fl (80.0-96.0); MONO # 0.3 10^3/uL (0.0-0.8); MONO % 5.5 % (2.0-8.0); NEUTROPHILS # 4.7 10^3/uL (1.5-8.5); NEUTROPHILS % 82.3 % (36.0-66.0); PLATELET COUNT, AUTOMATED 159 10^3/uL (150-450); RED BLOOD COUNT 3.78 10^6/uL (4.00-5.40); WHITE BLOOD COUNT 5.7 10^3/uL (4.0-10.0)
[2024-07-31 07:43] LABS: CALCIUM LEVEL 9.8 MG/DL (8.3-10.6); CREATININE FOR GFR 1.05 MG/DL (0.55-1.30); POTASSIUM SERUM 4.9 MMOL/L (3.5-5.1)
[2024-07-31 08:00] VITALS: BP 144/58; TEMP 98.1; O2SAT 93
[2024-07-31] MEDS: ACETAMINOPHEN 325 MG TAB PO PRN (09:04)
[2024-07-31] MEDS: MAGNESIUM OXIDE 400MG TAB (MAG-OX) PO SCH (09:54)
[2024-07-31] MEDS: amLODIPine 5 MG TAB PO SCH (09:55)
[2024-07-31] MEDS: FUROSEMIDE 20 MG TAB PO SCH (09:55)
[2024-07-31] MEDS: VALSARTAN 40MG TABLET (DIOVAN) PO SCH (09:56)
[2024-07-31 10:00] VITALS: BP 131/57; TEMP 97.9; O2SAT 95
[2024-07-31 20:48] VITALS: BP 131/60; TEMP 97.3; O2SAT 97
[2024-08-01 04:35] VITALS: BP 136/74; TEMP 97.5; O2SAT 97
[2024-08-01 06:32] LABS: BASO % 0.2 % (0.0-1.0); EOS # 0.1 10^3/uL (0.0-0.5); EOS % 1.4 % (0.0-3.0); HEMATOCRIT 34.6 % (36.0-47.0); HEMOGLOBIN 11.4 g/dl (12.0-15.5); LYMPH # 0.7 10^3/uL (1.5-5.0); LYMPH % 13.6 % (24.0-44.0); MEAN CORPUSCULAR HEMOGLOBIN 29.3 pg (27.0-33.0); MEAN CORPUSCULAR HGB CONC 32.9 g/dl (32.0-36.5); MEAN CORPUSCULAR VOLUME 88.9 fl (80.0-96.0); MONO # 0.3 10^3/uL (0.0-0.8); MONO % 5.8 % (2.0-8.0); NEUTROPHILS # 3.8 10^3/uL (1.5-8.5); NEUTROPHILS % 78.8 % (36.0-66.0); PLATELET COUNT, AUTOMATED 159 10^3/uL (150-450); RED BLOOD COUNT 3.89 10^6/uL (4.00-5.40); WHITE BLOOD COUNT 4.9 10^3/uL (4.0-10.0)
[2024-08-01 06:53] LABS: CREATININE FOR GFR 1.12 MG/DL (0.55-1.30); GLOMERULAR FILTRATION RATE 49.2 (>32); POTASSIUM SERUM 4.6 MMOL/L (3.5-5.1)
[2024-08-01 08:15] VITALS: BP 144/76; TEMP 97.9; O2SAT 94
[2024-08-01] MEDS: MOM 30ML SUSPENSION UDC PO PRN (08:18)
[2024-08-01] MEDS ORDERED: PERCOCET PO (16:41)
[2024-08-01] MEDS ORDERED: MIRA3350 PO (16:43)
[2024-08-01] MEDS ORDERED: SENN1TAB85 PO (16:43)
[2024-08-01 20:57] VITALS: BP 120/47; TEMP 97.3; O2SAT 96
[2024-08-01] MEDS: APIXABAN 5 MG TAB (ELIQUIS) PO SCH (21:34)
[2024-08-02 04:20] VITALS: BP 133/64; TEMP 97.1; O2SAT 97
[2024-08-02 06:43] LABS: BASO % 0.3 % (0.0-1.0); EOS # 0.1 10^3/uL (0.0-0.5); EOS % 3.3 % (0.0-3.0); HEMATOCRIT 34.4 % (36.0-47.0); HEMOGLOBIN 11.1 g/dl (12.0-15.5); LYMPH # 1.1 10^3/uL (1.5-5.0); LYMPH % 26.7 % (24.0-44.0); MEAN CORPUSCULAR HEMOGLOBIN 29.1 pg (27.0-33.0); MEAN CORPUSCULAR HGB CONC 32.3 g/dl (32.0-36.5); MEAN CORPUSCULAR VOLUME 90.3 fl (80.0-96.0); MONO # 0.3 10^3/uL (0.0-0.8); MONO % 7.1 % (2.0-8.0); NEUTROPHILS # 2.5 10^3/uL (1.5-8.5); NEUTROPHILS % 62.3 % (36.0-66.0); PLATELET COUNT, AUTOMATED 172 10^3/uL (150-450); RED BLOOD COUNT 3.81 10^6/uL (4.00-5.40); WHITE BLOOD COUNT 3.9 10^3/uL (4.0-10.0)
[2024-08-02 07:04] LABS: CREATININE FOR GFR 1.07 MG/DL (0.55-1.30); GLOMERULAR FILTRATION RATE 51.9 (>32); POTASSIUM SERUM 4.8 MMOL/L (3.5-5.1)
[2024-08-02 08:08] VITALS: BP 157/61
== END 2024-08-02 10:40 | DRG 481 ==
LOC: M ED 18:49 → M ED INP 22:38 → M MS5PR 07-29 00:23
PROVIDERS: ADMIT Internal Medicine Nephrology; ATTEND General Practice
PROC: 0QSC04Z Reposition Left Lower Femur with Internal Fixation Device, Open Approach (ICD-10-PCS; principal; 2024-07-30 13:00)
DX: S72.402A Unspecified fracture of lower end of left femur, initial encounter for closed fracture (principal); I50.32 Chronic diastolic (congestive) heart failure; M97.12XA Periprosthetic fracture around internal prosthetic left knee joint, initial encounter; Z96.652 Presence of left artificial knee joint; W01.0XXA Fall on same level from slipping, tripping and stumbling without subsequent striking against object, initial encounter; Y92.009 Unspecified place in unspecified non-institutional (private) residence as the place of occurrence of the external cause; I45.10 Unspecified right bundle-branch block; I11.0 Hypertensive heart disease with heart failure; E11.9 Type 2 diabetes mellitus without complications; E78.5 Hyperlipidemia, unspecified; I48.91 Unspecified atrial fibrillation; I34.0 Nonrheumatic mitral (valve) insufficiency; Z98.41 Cataract extraction status, right eye; Z98.42 Cataract extraction status, left eye; Z90.79 Acquired absence of other genital organ(s); Z79.82 Long term (current) use of aspirin; Z79.84 Long term (current) use of oral hypoglycemic drugs; Z79.899 Other long term (current) drug therapy; E86.0 Dehydration; D64.9 Anemia, unspecified

== ENCOUNTER → 2024-08-03 | Outpatient (REF) ==
[~2024-08-03] MED LIST changes: +AMLO1TAB24 PO; +DILT1TAB12 PO; +DRON400T PO; +ELIQ5TAB PO; +FURO20TA2 PO; +JARD1TAB PO; +MIRA3350 PO; +OCUVTAB4 PO; +PERCOCET PO; +SENN1TAB85 PO; +VALS40TA9 PO
== END ==
LOC: SKLAB2 09:01
PROVIDERS: ATTEND Internal Medicine
DX: R06.89 Other abnormalities of breathing (principal)

== ENCOUNTER → 2024-08-09 | Outpatient (REF) | payer MEDICARE, OTHER | LOC: M SOG 11:32 → EDSTATUS 08-10 08:51 | PROVIDERS: ATTEND Orthopaedic Surgery | DX: M79.652 Pain in left thigh (principal) ==

== ENCOUNTER → 2024-08-10 | Outpatient (REF) ==
[2024-08-10 06:52] LABS: HEMATOCRIT 35.3 % (36.0-47.0); HEMOGLOBIN 11.6 g/dl (12.0-15.5); MEAN CORPUSCULAR HEMOGLOBIN 28.7 pg (27.0-33.0); MEAN CORPUSCULAR HGB CONC 32.9 g/dl (32.0-36.5); MEAN CORPUSCULAR VOLUME 87.4 fl (80.0-96.0); PLATELET COUNT, AUTOMATED 230 10^3/uL (150-450); RED BLOOD COUNT 4.04 10^6/uL (4.00-5.40)
[2024-08-10 07:20] LABS: CALCIUM LEVEL 10.4 MG/DL (8.3-10.6); CREATININE FOR GFR 1.19 MG/DL (0.55-1.30); GLOMERULAR FILTRATION RATE 44.8 (>32); POTASSIUM SERUM 4.4 MMOL/L (3.5-5.1)
== END ==
LOC: SKLAB2 07:00
PROVIDERS: ATTEND Internal Medicine
DX: I10 Essential (primary) hypertension (principal)

== ENCOUNTER → 2024-08-17 | Outpatient (REF) ==
[2024-08-17 08:00] LABS: HEMATOCRIT 38.2 % (36.0-47.0); HEMOGLOBIN 12.1 g/dl (12.0-15.5); MEAN CORPUSCULAR HEMOGLOBIN 28.9 pg (27.0-33.0); MEAN CORPUSCULAR HGB CONC 31.7 g/dl (32.0-36.5); MEAN CORPUSCULAR VOLUME 91.2 fl (80.0-96.0); PLATELET COUNT, AUTOMATED 216 10^3/uL (150-450); RED BLOOD COUNT 4.19 10^6/uL (4.00-5.40); WHITE BLOOD COUNT 4.2 10^3/uL (4.0-10.0)
[2024-08-17 08:12] LABS: CREATININE FOR GFR 1.06 MG/DL (0.55-1.30); GLOMERULAR FILTRATION RATE 51.5 (>32); POTASSIUM SERUM 4.5 MMOL/L (3.5-5.1)
== END ==
LOC: SKLAB2 07:00
PROVIDERS: ATTEND Internal Medicine
DX: I10 Essential (primary) hypertension (principal)

== ENCOUNTER → 2024-08-24 | Outpatient (REF) ==
[2024-08-24 08:15] LABS: HEMATOCRIT 40.5 % (36.0-47.0); HEMOGLOBIN 13.1 g/dl (12.0-15.5); MEAN CORPUSCULAR HEMOGLOBIN 29.4 pg (27.0-33.0); MEAN CORPUSCULAR HGB CONC 32.3 g/dl (32.0-36.5); MEAN CORPUSCULAR VOLUME 90.8 fl (80.0-96.0); PLATELET COUNT, AUTOMATED 162 10^3/uL (150-450); RED BLOOD COUNT 4.46 10^6/uL (4.00-5.40); WHITE BLOOD COUNT 4.3 10^3/uL (4.0-10.0)
[2024-08-24 08:48] LABS: CALCIUM LEVEL 10.4 MG/DL (8.3-10.6); CREATININE FOR GFR 1.07 MG/DL (0.55-1.30); GLOMERULAR FILTRATION RATE 50.9 (>32); POTASSIUM SERUM 4.9 MMOL/L (3.5-5.1)
== END ==
LOC: SKLAB6 07:00
PROVIDERS: ATTEND Internal Medicine
DX: I10 Essential (primary) hypertension (principal)

== ENCOUNTER → 2024-09-19 | Outpatient (REF) | LOC: M RAD 13:30 | PROVIDERS: ATTEND Nurse Practitioner Family | DX: M97.12XD Periprosthetic fracture around internal prosthetic left knee joint, subsequent encounter (principal) ==

== ENCOUNTER → 2024-09-20 | Outpatient (REF) | payer MEDICARE, OTHER | LOC: M SOG 06:57 → EDSTATUS 09:08 | PROVIDERS: ATTEND Physician Assistant | DX: M79.652 Pain in left thigh (principal) ==

== ENCOUNTER → 2025-01-30 | Outpatient (CLI) | payer MEDICARE, OTHER | LOC: M SOG 07:23 | PROVIDERS: ATTEND Orthopaedic Surgery | DX: S72.492D Other fracture of lower end of left femur, subsequent encounter for closed fracture with routine healing (principal); M97.12XD Periprosthetic fracture around internal prosthetic left knee joint, subsequent encounter; W18.30XD Fall on same level, unspecified, subsequent encounter ==